=== PATIENT | female | born 1955 | race Caucasian/White ===

== ENCOUNTER 2017-03-19 10:45 | Emergency (ER) | payer OTHER ==
[~2017-03-19] VITALS: Wt 61.2 kg
[2017-03-19] MEDS ORDERED: LISINOPRIL5 MG PO (10:50)
[2017-03-19] MEDS ORDERED: GEMFIBROZIL600 MG PO (10:50)
[2017-03-19] MEDS ORDERED: NEURONTIN300 MG PO (10:50)
[2017-03-19] MEDS ORDERED: LEVOTHYROXIN0.075 M1 PO (10:51)
[2017-03-19] MEDS ORDERED: VENLAFAXINE HY150 M2 PO (10:51)
[2017-03-19] MEDS ORDERED: TRAZADONE HYDR100 MG PO (10:52)
[2017-03-19] MEDS ORDERED: TRAMADOL HCL50 MG PO (10:52)
[2017-03-19] MEDS ORDERED: CARVEDILOL12.5 MG PO (10:52)
[2017-03-19] MEDS ORDERED: ASPIRIN CHEWABL81 MG PO (10:53)
[2017-03-19 12:00] VITALS: BP 159/84
== END 2017-03-19 12:31 | disposition home or self-care (01) ==
LOC: ED 10:45
DX: S96.911A Strain of unspecified muscle and tendon at ankle and foot level, right foot, initial encounter (principal); F17.200 Nicotine dependence, unspecified, uncomplicated; Z88.0 Allergy status to penicillin; Z88.1 Allergy status to other antibiotic agents; Z88.2 Allergy status to sulfonamides; Z79.899 Other long term (current) drug therapy; Z79.82 Long term (current) use of aspirin; X50.1XXA Overexertion from prolonged static or awkward postures, initial encounter; Y93.9 Activity, unspecified; Y92.9 Unspecified place or not applicable; Y99.9 Unspecified external cause status